=== PATIENT | male | born 1925 | race Caucasian/White ===

== ENCOUNTER 2016-09-05 09:26 | Emergency (ER) | payer MEDICARE, BC ==
[2016-09-05 09:52] VITALS: BP 128/80
--- NOTE | 2016-09-05 10:34 | EDM.PDOC ---
ED HPI GENERAL MEDICAL PROBLEM - General Chief Complaint: General Stated Complaint: FAILING Time Seen by Provider: 09/05/16 10:02 Source of Information: Reports: Patient, Family, Old records, RN notes reviewed History Limitations: Reports: No limitations - History of Present Illness INITIAL COMMENTS - FREE TEXT/NARRATIVE: 89-year-old gentleman presents emergency department day complaint of weakness he has progressively declined over the last 6 weeks has been evaluated by his primary care provider for the same complaint last week CT scan of the head was ordered but has not been completed he is not had any blood work for over several weeks his last INR was in the 7 range denies any bleeding. Other than weakness and frequent falls has no specific complaints that are new. Other than a weight loss of about 10 pounds over the last month do to poor oral intake - Related Data Allergies Allergy/AdvReac Type Severity Reaction Status Date / Time atorvastatin [From Lipitor] Allergy Leg Cramps Verified 09/05/16 10:12 seasonal Allergy unknown Uncoded 09/14/15 08:59 Home Meds: Home Meds Citalopram Hydrobromide [Celexa] 20 mg PO DAILY 09/05/16 [History] Finasteride 5 mg PO DAILY 09/05/16 [History] Folic Acid 0.4 mg PO DAILY 09/05/16 [History] Levothyroxine Sodium [Levoxyl] 50 mcg PO DAILY 09/05/16 [History] Multivitamin with Minerals [Multiple Vitamin] 1 tab PO DAILY 09/05/16 [History] [place]-3 Fatty Acids [Howes-3] 2,000 mg PO DAILY 09/05/16 [History] Propafenone HCl 150 mg PO TID 09/05/16 [History] Quinapril HCl 20 mg PO DAILY 09/05/16 [History] Terazosin HCl [Terazosin] 2 mg PO BEDTIME 09/05/16 [History] Warfarin [Coumadin] 2.5 mg PO DAILY 09/05/16 [History] Past Medical History HEENT History: Reports: Impaired vision Cardiovascular History: Reports: Afib, High cholesterol Genitourinary History: Reports: BPH Musculoskeletal History: Reports: Other (see below) Other Musculoskeletal History: crushed lumbar vertebrae Endocrine/Metabolic History: Reports: Hypothyroidism - Infectious Disease History Infectious Disease History: Reports: Chicken pox, Measles, Mumps - Past Surgical History HEENT Surgical History: Reports: Cataract surgery GI Surgical History: Reports: Appendectomy Social & Family History - Tobacco Use Smoking Status *Q: Never Smoker - Caffeine Use Caffeine Use: Reports: Coffee - Recreational Drug Use Recreational Drug Use: No ED ROS GENERAL - Review of Systems Review Of Systems: See Below Constitutional: Reports: weakness, weight loss HEENT: Reports: No symptoms Respiratory: Reports: No Symptoms Cardiovascular: Reports: No symptoms GI/Abdominal: Reports: Nausea, Vomiting. Denies: Abdominal pain : Reports: urinary retention Musculoskeletal: Reports: no symptoms Skin: Reports: no symptoms Neurological: Reports: Difficulty Walking, Weakness ED EXAM, GENERAL - Physical Exam Exam: See Below Free Text/Narrative:: General: Elderly male, not in any distress, alert and oriented x3 HEENT: head is atraumatic normocephalic, eyes pupils equal round reactive to light, sclera clear no conjunctivitis appreciated. Ears tympanic membranes clear and coronado landmarks and light reflex are present bilaterally canals are clear. Nose no septal deviation, nares are clear, no blood present. Mouth mucosa is moist and pink no erythema or exudate noted in soft palate, tongue is midline uvula is midline, dentition is in place. Neck: Supple no thyromegaly no tracheal deviation. Nodes: Cervical nodes subclavicular nodes nontender no palpable lymphadenopathy noted. Lungs: clear to auscultation bilaterally with symmetrical respirations, no adventitious noise appreciated. CV: Irregularly irregular rate and rhythm S1 and S2 appreciated no murmurs rubs or gallops noted. Abdomen: Soft, nontender, no palpable masses or organomegaly appreciated, no distention no guarding bowel sounds are present, . Neuro: Cranial nerves II through XII grossly intact Skin: Warm and dry, intact Extremities: No lower extremity edema appreciated, Course - Vital Signs Last Recorded V/S: Last Vital Signs Temp 95.9 F 09/05/16 09:51 Pulse 108 H 09/05/16 09:51 Resp 16 09/05/16 09:51 BP 128/80 09/05/16 09:51 Pulse Ox 96 09/05/16 09:51 - Orders/Labs/Meds Labs: Laboratory Tests 09/05/16 09/05/16 09/05/16 Range/Units 10:36 10:36 10:36 WBC 10.0 (4.5-11.0) K/uL RBC 4.40 (4.30-5.90) M/uL Hgb 12.2 (12.0-15.0) g/dL Hct 39.5 L (40.0-54.0) % MCV 90 (80-98) fL MCH 28 (27-31) pg MCHC 31 L (32-36) % Plt Count 256 (150-400) K/uL Neut % (Auto) 72 H (36-66) % Lymph % (Auto) 17 L (24-44) % Winn % (Auto) 11 H (2-6) % Eos % (Auto) 0 L (2-4) % Baso % (Auto) 0 (0-1) % Sodium 141 (140-148) mmol/L Potassium 3.4 L (3.6-5.2) mmol/L Chloride 105 (100-108) mmol/L Carbon Dioxide 31 (21-32) mmol/L Anion Gap 8.4 (5.0-14.0) mmol/L BUN 19 H (7-18) mg/dL Creatinine 1.2 (0.8-1.3) mg/dL Est Cr Clr Drug Dosing 38.40 mL/min Estimated GFR (MDRD) 57 L (>60) Glucose 120 H (74-106) mg/dL Lactic Acid (0.4-2.0) mmol/L Calcium 9.9 (8.5-10.1) mg/dL Total Bilirubin 0.9 (0.2-1.0) mg/dL AST 32 (15-37) U/L ALT 36 (12-78) U/L Alkaline Phosphatase 90 (46-116) U/L Ammonia 6 L (11-32) mmol/L Troponin I 0.023 (0.000-0.056) ng/mL C-Reactive Protein (0.0-0.3) mg/dL Total Protein 6.7 (6.4-8.2) g/dL Albumin 2.2 L (3.4-5.0) g/dL Globulin 4.5 H (2.3-3.5) g/dL Albumin/Globulin Ratio 0.5 L (1.2-2.2) Lipase 79 (73-393) U/L TSH, Ultra Sensitive 4.430 H (0.358-3.740) uIU/mL 09/05/16 09/05/16 Range/Units 10:36 11:00 WBC (4.5-11.0) K/uL RBC (4.30-5.90) M/uL Hgb (12.0-15.0) g/dL Hct (40.0-54.0) % MCV (80-98) fL MCH (27-31) pg MCHC (32-36) % Plt Count (150-400) K/uL Neut % (Auto) (36-66) % Lymph % (Auto) (24-44) % Winn % (Auto) (2-6) % Eos % (Auto) (2-4) % Baso % (Auto) (0-1) % Sodium (140-148) mmol/L Potassium (3.6-5.2) mmol/L Chloride (100-108) mmol/L Carbon Dioxide (21-32) mmol/L Anion Gap (5.0-14.0) mmol/L BUN (7-18) mg/dL Creatinine (0.8-1.3) mg/dL Est Cr Clr Drug Dosing mL/min Estimated GFR (MDRD) (>60) Glucose (74-106) mg/dL Lactic Acid 1.7 (0.4-2.0) mmol/L Calcium (8.5-10.1) mg/dL Total Bilirubin (0.2-1.0) mg/dL AST (15-37) U/L ALT (12-78) U/L Alkaline Phosphatase (46-116) U/L Ammonia (11-32) mmol/L Troponin I (0.000-0.056) ng/mL C-Reactive Protein 5.67 H (0.0-0.3) mg/dL Total Protein (6.4-8.2) g/dL Albumin (3.4-5.0) g/dL Globulin (2.3-3.5) g/dL Albumin/Globulin Ratio (1.2-2.2) Lipase (73-393) U/L TSH, Ultra Sensitive (0.358-3.740) uIU/mL Departure - Departure Time of Disposition: 12:56 Disposition: Home, Self-Care 01 Condition: poor Clinical Impression: Weakness Forms: ED Department Discharge Additional Instructions: followup with your primary care provider as needed - Assessment/Plan Plan: Assessment Acuity = acute Site and laterality = generalized weakness complicated patient with known history of hypothyroidism Etiology = suspicious for underlying metastatic disease Manifestations = none Location of injury = home Lab values = CBC unremarkable potassium low at 2.4 consistent hypokalemia albumin low at 2.2 consistent hypoalbuminemia TSH is elevated at 4.43 consistent with hypothyroidism subtherapeutic. CT scan shows questionable area in the left temporal lobe possibly metastases versus old infarction, chest x- ray shows multiple nodules suspicious for metastatic disease Plan I did review these results with him and his family he elected to proceed to comfort care only and did not want to pursue a diagnosis of CT scan and biopsy at this time. Hanna consult was obtained POLST was completed comfort care Patient was in agreement with the plan all questions were answered, they were instructed to return to the emergency department or call for worsening symptoms. This note was dictated using [email or web address] voice recognition software please call with any questions.
--- NOTE | 2016-09-05 11:26 | CT ---
CT head without contrast. Indication: Weakness. Total DLP 768. Findings: There is moderate global atrophy. Prominence of the CSF spaces more evident right than lef t. Moderate patchy hypodensity about the deep and periventricular white matter. No hemorrhage or sub acute territorial infarct. Vascular calcifications. Within the left temporal lobe within the middle cranial fossa is hypodensity up to 2 cm. It is centrally located. Vascular calcifications are eviden t. Mastoid air cells are clear. The calvarium is intact. Impression: 1. No hemorrhage or subacute territorial infarct. 2. Hypodensity left temporal lobe. This likely is due to prior insult or in fall but has a slight ro unded appearance. MRI follow-up should be performed with contrast to exclude a mass.
--- NOTE | 2016-09-05 11:54 | CR ---
Heart size is mildly enlarged. Masslike densities within the upper lobes. Neoplasm could have this a ppearance. Small left pleural effusion.
== END 2016-09-05 13:05 | disposition home or self-care (01) ==
LOC: JP.ED 09:26
DX: R53.1 Weakness (principal); E78.00 Pure hypercholesterolemia, unspecified; I48.91 Unspecified atrial fibrillation; E03.9 Hypothyroidism, unspecified; Z90.49 Acquired absence of other specified parts of digestive tract; Z98.890 Other specified postprocedural states; Z79.899 Other long term (current) drug therapy; Z79.01 Long term (current) use of anticoagulants; Z88.8 Allergy status to other drugs, medicaments and biological substances
CPT/HCPCS: 36415; 70450; 70450-26; 71020; 71020-26; 80053; 82140; 83605; 83690; 84443; 84484; 85025; 86140; 99284; 99285-25

== ENCOUNTER 2016-09-08 03:00 | Emergency (ER) | payer MEDICARE, BC ==
[2016-09-08 03:24] VITALS: BP 126/61
--- NOTE | 2016-09-08 03:35 | EDM.PDOC ---
ED HPI GENERAL MEDICAL PROBLEM - General Chief Complaint: General Stated Complaint: MED VIA [facility] Time Seen by Provider: 09/08/16 03:18 Source of Information: Reports: Patient, Family History Limitations: Reports: No limitations - History of Present Illness INITIAL COMMENTS - FREE TEXT/NARRATIVE: This patient comes in from the memory care unit where he was admitted earlier in the day. When staff checked on him he was sitting in the recliner but was leaning over to the left side. They thought that indicated he was having a stroke so they sent him to the ER. The patient's daughter is with him and she said he always sits like that in the recliner. The patient says he feels just fine and the daughter says that he acts normally. - Related Data Allergies Allergy/AdvReac Type Severity Reaction Status Date / Time atorvastatin [From Lipitor] Allergy Leg Cramps Verified 09/08/16 03:25 seasonal Allergy unknown Uncoded 09/08/16 03:25 Home Meds: Home Meds Citalopram Hydrobromide [Celexa] 20 mg PO DAILY 09/05/16 [History] Finasteride 5 mg PO DAILY 09/05/16 [History] Folic Acid 0.4 mg PO DAILY 09/05/16 [History] Levothyroxine Sodium [Levoxyl] 50 mcg PO DAILY 09/05/16 [History] Multivitamin with Minerals [Multiple Vitamin] 1 tab PO DAILY 09/05/16 [History] [place]-3 Fatty Acids [[place]-3] 2,000 mg PO DAILY 09/05/16 [History] Propafenone HCl 150 mg PO TID 09/05/16 [History] Quinapril HCl 20 mg PO DAILY 09/05/16 [History] Terazosin HCl [Terazosin] 2 mg PO BEDTIME 09/05/16 [History] Warfarin [Coumadin] 2.5 mg PO DAILY 09/05/16 [History] Past Medical History HEENT History: Reports: Impaired vision Cardiovascular History: Reports: Afib, High cholesterol Genitourinary History: Reports: BPH Musculoskeletal History: Reports: Other (see below) Other Musculoskeletal History: crushed lumbar vertebrae Endocrine/Metabolic History: Reports: Hypothyroidism - Infectious Disease History Infectious Disease History: Reports: Chicken pox, Measles, Mumps - Past Surgical History HEENT Surgical History: Reports: Cataract surgery GI Surgical History: Reports: Appendectomy Social & Family History - Tobacco Use Smoking Status *Q: Never Smoker - Caffeine Use Caffeine Use: Reports: Coffee - Recreational Drug Use Recreational Drug Use: No ED ROS GENERAL - Review of Systems Review Of Systems: ROS reveals no pertinent complaints other than HPI. ED EXAM, GENERAL - Physical Exam Exam: See Below Exam Limited By: No limitations General Appearance: alert, WD/WN, no apparent distress Eye Exam: bilateral eye: normal inspection Ears: normal external exam Throat/Mouth: Normal oropharynx Head: atraumatic Neck: normal inspection Respiratory/Chest: lungs clear Cardiovascular: normal peripheral pulses, regular rate, rhythm GI/Abdominal: non tender Extremities: normal inspection Neurological: alert, oriented (He's oriented to person and place), CN II-XII intact, normal cognition, no motor/sensory deficits Psychiatric: normal affect Skin Exam: Warm, Dry Course - Vital Signs Last Recorded V/S: Last Vital Signs Temp 36.7 C 09/08/16 03:18 Pulse 105 H 09/08/16 03:18 Resp 18 09/08/16 03:18 BP 126/61 09/08/16 03:18 Pulse Ox 92 L 09/08/16 03:18 - Re-Assessments/Exams Free Text/Narrative Re-Assessment/Exam: 09/09/16 07:34 this gentleman does into the left while sitting up in the stretcher in the exam room. We had him stand briefly and he was quite wobbly. His daughter said this is about normal for him Departure - Departure Time of Disposition: 03:32 Disposition: Home, Self-Care 01 Condition: fair Clinical Impression: Neurologic abnormality Instructions: Weakness, [id number] Referrals: Cuba Mendez MD [Primary Care Provider] - Forms: ED Department Discharge Additional Instructions: It's normal for this patient to lean to one side while sitting in his recliner. Continue all of his medications unchanged.
== END 2016-09-08 03:57 | disposition home or self-care (01) ==
LOC: JP.ED 03:00
DX: R29.818 Other symptoms and signs involving the nervous system (principal); I48.91 Unspecified atrial fibrillation; E78.00 Pure hypercholesterolemia, unspecified; E03.9 Hypothyroidism, unspecified; Z98.49 Cataract extraction status, unspecified eye; Z90.49 Acquired absence of other specified parts of digestive tract; Z79.899 Other long term (current) drug therapy; Z88.8 Allergy status to other drugs, medicaments and biological substances; Z91.048 Other nonmedicinal substance allergy status
CPT/HCPCS: 99282; 99284